=== PATIENT | male | born 1970 | race Hispanic/Latino ===

== ENCOUNTER 2019-10-28 02:30 | Emergency (ER) | payer SELFPAY ==
[2019-10-28] MEDS ORDERED: diphenhydrAMINE 25 MG CAP PO ONE (03:26)
--- NOTE | 2019-10-28 03:34 | Emergency Department Report ---
<MAHNAZELVIRAWALT CedNoreen - Last Filed: 10/28/19 06:05> ED Psych HPI - General Chief Complaint: Psych Stated Complaint: MH Time Seen by Provider: 10/28/19 03:18 Source: EMS Mode of arrival: Ambulatory - History of Present Illness Initial Comments: Patient is 49 years old male, unknown to me. Patient was never been in this hospital before. Patient presented to the ER stating that he wants some Benadryl to help with sleep. Patient is unable to answer any question appropriately. Patient is jumping from statement to statement with significant flight of ideas and words salad. Patient stated that he is talking to God a lot. Patient denied any visual or auditory hallucination. No suicidal or homicidal ideation. MD Complaint: altered mental status - Related Data Allergies Allergy/AdvReac Type Severity Reaction Status Date / Time Unable to Assess Allergy Unverified 10/28/19 03:17 ED Review of Systems Comment: All other systems reviewed and negative Constitutional: denies: chills, fever Respiratory: denies: cough, shortness of breath, SOB with exertion Cardiovascular: denies: chest pain, palpitations Gastrointestinal: denies: abdominal pain, nausea, vomiting Musculoskeletal: denies: back pain Neurological: denies: headache, weakness Psychiatric: anxiety. denies: depression, auditory hallucinations, visual hallucinations, homicidal thoughts, suicidal thoughts ED Past Medical Hx - Past Medical History Previous Medical History?: Yes Hx Psychiatric Treatment: Yes (paranoid schizo, anxiety) - Social History Smoking Status: Unknown if ever smoked ED Physical Exam - General Limitations: Altered Mental Status General appearance: alert, anxious - Head Head exam: Present: atraumatic, normocephalic, normal inspection - Eye Eye exam: Present: normal appearance, PERRL - ENT ENT exam: Present: normal exam, normal orophraynx, mucous membranes moist - Neck Neck exam: Present: normal inspection, full ROM. Absent: tenderness, meningismus - Respiratory Respiratory exam: Present: normal lung sounds bilaterally - Cardiovascular Cardiovascular Exam: Present: regular rate, normal rhythm, normal heart sounds - GI/Abdominal GI/Abdominal exam: Present: soft, normal bowel sounds. Absent: distended, tenderness, guarding, rebound, rigid, organomegaly, mass, bruit, pulsatile mass, hernia - Extremities Exam Extremities exam: Present: normal inspection, full ROM, normal capillary refill. Absent: pedal edema, calf tenderness - Back Exam Back exam: Present: normal inspection, full ROM. Absent: CVA tenderness (R), CVA tenderness (L) - Neurological Exam Neurological exam: Present: alert, oriented X3, CN II-XII intact, normal gait, reflexes normal. Absent: motor sensory deficit - Psychiatric Psychiatric exam: Present: anxious, manic. Absent: homicidal ideation, suicidal ideation - Skin Skin exam: Present: warm, intact, normal color ED Medical Decision Making - Lab Data Result diagrams: 10/28/19 03:35 10/28/19 03:35 - Medical Decision Making Patient is 49 years old male, unknown to me. Patient was never been in this hospital before. Patient presented to the ER stating that he wants some Benadryl to help with sleep. Patient is unable to answer any question a ppropriately. Patient is jumping from statement to statement with significant flight of ideas and words salad. Patient stated that he is talking to God a lot. Patient denied any visual or auditory hallucination. No suicidal or homicidal ideation. Labs reviewed and is unremarkable. Patient is medically cleared to be evaluated by psychiatric team for further management. ED Disposition Clinical Impression: Methamphetamine abuse, Drug-induced paranoid state Disposition: DC-01 TO HOME OR SELFCARE Condition: Stable Instructions: Methamphetamine Abuse (ED) Additional Instructions: Take the medication as prescribed. Follow-up with your doctor or doctor/clinic provided. Return if symptoms worsen as indicated by your discharge instructions. Referrals: PRIMARY CARE, [Primary Care Provider] - 3-5 Days [facility] [Outside] - 3-5 Days [facility] [Provider Group] - 3-5 Days <ANA MARIA MATHEW - Last Filed: 10/28/19 09:41> ED Review of Systems ROS: Stated complaint: MH Other details as noted in HPI ED Course Vital Signs 10/28/19 10/28/19 03:13 07:59 Temperature 98 F 98.4 F Pulse Rate 91 H 94 H Respiratory 18 20 Rate Blood Pressure 146/101 Blood Pressure 101/76 [Right] O2 Sat by Pulse 98 97 Oximetry - Reevaluation(s) Reevaluation #1: 10/28/19 09:33 Mental health assessment review. Patient is clear for discharge. As per note and initial MD note patient does not endorse suicidal homicidal ideation. Patient is not psychotic and instead appeared to be paranoid with flight of i lori as result of methamphetamine use. Patient is alert and oriented x3 and does not do psychosis, suicidal, homicidal ideation. He said he is feeling much better since his initial ED presentation. He will be discharged with outpatient resources provided by [facility] ED Medical Decision Making - Lab Data Result diagrams: 10/28/19 03:35 10/28/19 03:35 Critical care attestation.: If time is entered above; I have spent that time in minutes in the direct care of this critically ill patient, excluding procedure time. ED Disposition Is pt being admited?: No Does the pt Need Aspirin: No Time of Disposition: 09:41
[2019-10-28 04:25] LABS: Basophils % (Auto) 0.4 % (0.0-1.8); Eosinophils % (Auto) 0.2 % (0.0-4.3); Hematocrit 35.9 % (35.5-45.6); Lymphocytes # (Auto) 1.3 K/mm3 (1.2-5.4); Lymphocytes % (Auto) 13.6 % (13.4-35.0); Mean Corpuscular HGB Conc 33 % (32-34); Mean Corpuscular Volume 92 fl (84-94); Monocytes # (Auto) 0.8 K/mm3 (0.0-0.8); Monocytes % (Auto) 8.6 % (0.0-7.3); Platelet Count 301 K/mm3 (140-440); Red Blood Count 3.91 M/mm3 (3.65-5.03); Red Cell Distribution Width 15.2 % (13.2-15.2)
[2019-10-28 04:36] LABS: BUN/Creatinine Ratio 25; Blood Urea Nitrogen 20 mg/dL (9-20); Calcium 9.8 mg/dL (8.4-10.2); Hemolysis Index 3
[2019-10-28 05:35] LABS: Bilirubin,Urine NEG (Negative); Blood,Urine NEG (Negative); Color,Urine Amber (Yellow); Hyaline Casts,Urine 1 /LPF; Mucus,Urine FEW /HPF
[2019-10-28 05:43] LABS: Benzodiazepines Screen,Urine PRESUMPTIVE NEGATIVE; Cannabinoid Screen,Urine PRESUMPTIVE NEGATIVE; Cocaine Screen,Urine PRESUMPTIVE NEGATIVE; Methadone Screen,Urine PRESUMPTIVE NEGATIVE; Opiate Screen,Urine PRESUMPTIVE NEGATIVE
[2019-10-28 05:55] LABS: Amphetamine Screen,Urine PRESUMPTIVE POSITIVE
[2019-10-28 08:00] VITALS: BP 101/76
== END 2019-10-28 10:48 | disposition home or self-care (01) ==
LOC: ED 02:30
DX: F15.20 Other stimulant dependence, uncomplicated (principal); F19.950 Other psychoactive substance use, unspecified with psychoactive substance-induced psychotic disorder with delusions; F20.0 Paranoid schizophrenia; F41.9 Anxiety disorder, unspecified
CPT/HCPCS: 36415; 80048; 80307; 80320; 81001; 85025; G0480